=== PATIENT | female | born 1995 | race Caucasian/White ===

== ENCOUNTER 2016-04-24 17:57 | Emergency (ER) | payer BC ==
[2016-04-24 18:02] VITALS: BP 144/80
--- NOTE | 2016-04-24 18:30 | ED ---
Throat Pain/Nasal Congestion - HPI Summary HPI Summary: 20 F presents with left eye redness, discharge since this morning. She wears contacts. She denies any blurry vision, change in vision, or double vision. She denies any other symptoms. She states she woke up with her eyes crusted over. She denies any foreign body in the eye. She admits to eye irritation. - History of Current Complaint Chief Complaint: EDEyeProblem Time Seen by Provider: 04/24/16 18:13 - Allergies/Home Medications Allergies/Adverse Reactions: Allergies Allergy/AdvReac Type Severity Reaction Status Date / Time No Known Allergies Allergy Verified 04/24/16 18:02 PMH/Surg Hx/FS Hx/Imm Hx Endocrine/Hematology History: Denies: Hx Diabetes, Hx Thyroid Disease Cardiovascular History: Denies: Hx Hypertension Respiratory History: Denies: Hx Asthma, Hx Chronic Obstructive Pulmonary Disease (COPD) GI History: Denies: Hx Ulcer - Surgical History Surgery Procedure, Year, and Place: TONSILLECTOMY Infectious Disease History: No Infectious Disease History: Denies: Hx Clostridium Difficile, Hx Hepatitis, Hx Human Immunodeficiency Virus (HIV), Hx of Known/Suspected MRSA, Hx Shingles, Hx Tuberculosis, Hx Known/ Suspected VRE, Hx Known/Suspected VRSA, History Other Infectious Disease, Traveled Outside the [place] in Last 30 Days - Family History Known Family History: Negative: Seizure Disorder, Blood Disorder - Social History Alcohol Use: Weekly Substance Use Type: Reports: None Smoking Status (MU): Never Smoked Tobacco Review of Systems Negative: Fever Positive: Photophobia, Drainage, Erythema. Negative: Blurred Vision, Diplopia Negative: Chest Pain Negative: Shortness Of Breath All Other Systems Reviewed And Are Negative: Yes Physical Exam Triage Information Reviewed: Yes Vital Signs On Initial Exam: Initial Vitals Temp Pulse Resp BP Pulse Ox 98.7 F 77 17 144/80 100 04/24/16 17:59 04/24/16 17:59 04/24/16 17:59 04/24/16 17:59 04/24/16 17:59 Vital Signs Reviewed: Yes Appearance: Positive: Well-Appearing Skin: Positive: Warm, Dry Head/Face: Positive: Normal Head/Face Inspection Eyes: Positive: EOMI, TARAN, Conjunctiva Inflammed - left eye, Discharge - yellow discharge present in left eye, Other: - wood lamp normal no ulcer or abrasion present ENT: Positive: Normal ENT inspection, Pharynx normal, TMs normal Respiratory/Lung Sounds: Positive: Clear to Auscultation, Breath Sounds Present Cardiovascular: Positive: Normal, RRR Procedures - Eye Procedure Alcaine Drops Administered: Yes - no ulcer or abrasion noted Diagnostics - Vital Signs Vital Signs Temp Pulse Resp BP Pulse Ox 04/24/16 17:59 98.7 F 77 17 144/80 100 - Laboratory Lab Statement: Any lab studies that have been ordered have been reviewed, and results considered in the medical decision making process. EENT Course/Dx - Course Course Of Treatment: 20 F presents with one day of left eye irriation, yellow drainage, and redness. wears contact but denies any change in vision, on exam yellow drainage present from left eye, conjunctiva is injected appearing, fernández lamp normal do not see ulcer present, will treat as bacertial conjuncitities due to involement of one eye and yellow drainage, will use polytrim and told to throw out contacts and not to use them till treatment complete, instructed that if develop symptoms in right eye to use drops there also, instructed to follow up with opthamology if no improvement, patient understands and agrees with plan - Differential Diagnoses Differential Diagnoses: Conjunctivitis, Corneal Abrasion, Uveitis, Other - corneal ulcer - Diagnoses Provider Diagnoses: Bacterial conjunctivitis of left eye Discharge - Discharge Plan Condition: Good Disposition: HOME Patient Education Materials: Conjunctivitis (ED) Referrals: Non Staff,Doctor [Primary Care Provider] - Ck Gonsales MD [Medical Doctor] - Additional Instructions: Place 1 drop in eye four times a day for 7 days Wash hands after touching eye Throw out contacts and do not wear contacts until infection clears Follow up with ophthalmology if no improvement Return to ED if develop any new or worsening symptoms
[2016-04-24] MEDS ORDERED: Polymyx/Trimethoprim OPTH* 10 ML BTL LEFT EYE ONE (18:31)
== END 2016-04-24 18:39 | disposition home or self-care (01) ==
LOC: ED 17:57
DX: H10.9 Unspecified conjunctivitis (principal); H53.149 Visual discomfort, unspecified
CPT/HCPCS: 99282